=== PATIENT | female | born 1965 | race Caucasian/White ===

== ENCOUNTER 2023-10-22 10:24 | Inpatient (IN) | payer MEDICARE, OTHER ==
[~2023-10-22] VITALS: Ht 160 cm; Wt 68.0 kg
[2023-10-22] MEDS ORDERED: MAGN400O6 PO (10:44)
[2023-10-22] MEDS ORDERED: INSU100V39 SQ (10:44)
[2023-10-22] MEDS ORDERED: LACO10SO3 PO (10:44)
[2023-10-22] MEDS ORDERED: FAMO20TA8 PO (10:44)
[2023-10-22] MEDS ORDERED: LIDOCAINE 5% PATCH TOP (10:44)
[2023-10-22] MEDS ORDERED: INSU100V7 SQ (10:44)
[2023-10-22] MEDS ORDERED: MULT-1275 PO (10:44)
[2023-10-22] MEDS ORDERED: LISI20TA30 PO (10:44)
[2023-10-22] MEDS ORDERED: TRAM50TA2 PO (10:44)
[2023-10-22] MEDS ORDERED: ACET325C7 PO (10:44)
[2023-10-22] MEDS ORDERED: GABA300C PO (10:44)
[2023-10-22] MEDS ORDERED: DOCU100C36 PO (10:44)
[2023-10-22] MEDS ORDERED: LATA2.5D2 EACHEYE (10:44)
[2023-10-22] MEDS ORDERED: ATOR80TA PO (10:44)
[2023-10-22] MEDS ORDERED: SENN8.6T19 PO (10:44)
[2023-10-22] MEDS ORDERED: AMLO10TA4 PO (10:44)
[2023-10-22] MEDS ORDERED: ONDA-104 PO (10:44)
[2023-10-22] MEDS ORDERED: POLY17PO4 PO (10:44)
[2023-10-22 11:10] LABS: BASOPHILS # (AUTO) 0.1 K/UL (0.0-0.2); BASOPHILS % (AUTO) 0.6 % (0.0-2.0); EOSINOPHILS # (AUTO) 0.3 K/uL (0.0-0.7); EOSINOPHILS % (AUTO) 2.5 % (0.0-7.0); HEMATOCRIT 38.8 % (31.2-41.9); HEMOGLOBIN 13.1 g/dL (10.9-14.3); LYMPHOCYTES # (AUTO) 3.4 K/uL (0.8-4.8); LYMPHOCYTES % (AUTO) 29.1 % (20.5-51.5); MEAN CORPUSCULAR HEMOGLOBIN 27.9 uug (24.7-32.8); MEAN CORPUSCULAR HGB CONC 34 g/dL (32.3-35.6); MEAN CORPUSCULAR VOLUME 82.8 fL (75.5-95.3); MONOCYTES # (AUTO) 0.8 K/uL (0.1-1.30); MONOCYTES % (AUTO) 7.1 % (0.0-11.0); NEUTROPHILS # (AUTO) 7.1 K/uL (1.8-8.9); NEUTROPHILS % (AUTO) 60.7 % (38.5-71.5); PLATELET COUNT (AUTO) 403 K/uL (179-408); RED BLOOD CELL COUNT(AUTO) 4.69 MIL/uL (3.63-4.92); WHITE BLOOD COUNT (AUTO) 11.7 K/uL (3.8-11.8)
[2023-10-22 11:34] LABS: ALANINE AMINOTRANSFERASE 541 U/L (14-59); ALBUMIN 3.2 g/dL (3.4-5.0); ALKALINE PHOSPHATASE 260 U/L (50-136); ASPARTATE AMINOTRANSFERASE 135 U/L (15-37); BILIRUBIN,DIRECT 0.1 mg/dL (0.0-0.2); BILIRUBIN,TOTAL 0.4 mg/dL (0.2-1.0); CALCIUM 9.6 mg/dL (8.5-10.1); CARBON DIOXIDE 29 mmol/L (21-32); CHLORIDE 101 mmol/L (98-107); CREATININE 0.8 mg/dL (0.6-1.3); GLUCOSE 234 mg/dL (74-106); NT-PRO BNP 209 pg/mL (0-125); POTASSIUM 4.4 mmol/L (3.5-5.1); SODIUM SERUM 140 mmol/L (136-145); UREA NITROGEN, BLOOD 18 mg/dL (7-18)
[2023-10-22 11:37] LABS: DIFFERENTIAL COMMENT 1
[2023-10-22] MEDS ORDERED: SENNOSIDES 1 TABLET PO PRN (15:30)
[2023-10-22] MEDS ORDERED: MAGNESIUM HYDROXIDE 30 ML LIQUID UDC PO PRN (15:30)
[2023-10-22] MEDS ORDERED: MIRALAX 17 GM POWD.PACK PO PRN (15:30)
[2023-10-22] MEDS ORDERED: ONDANSETRON HCL 4 MG TABLET PO PRN (15:30)
[2023-10-22] MEDS ORDERED: GABAPENTIN 300 MG CAPSULE PO SCH (15:52)
[2023-10-22 16:27] VITALS: BP 122/86; TEMP 97.8; O2SAT 94
[2023-10-22] MEDS ORDERED: LACOSAMIDE PO SCH (17:00)
[2023-10-22] MEDS: DOCUSATE SODIUM 100 MG CAPSULE PO SCH (17:41)
[2023-10-22 20:00] VITALS: BP 140/74; TEMP 98; O2SAT 95
[2023-10-22] MEDS ORDERED: Medication Not On Formulary EA (Atorvastatin Calcium (Lipitor) 80 MG) PO SCH (21:00)
[2023-10-22] MEDS: FAMOTIDINE 20 MG TABLET PO SCH (21:06)
[2023-10-22] MEDS: GABAPENTIN 300 MG CAPSULE PO SCH (21:06)
[2023-10-22] MEDS: ATORVASTATIN 40 MG TABLET PO SCH (21:06)
[2023-10-22] MEDS: LACOSAMIDE 100 MG/10 ML UDC PO SCH (21:06)
[2023-10-22] MEDS: LATANOPROST OPHT DROP 2.5 ML BOTTLE EACHEYE SCH (21:10)
[2023-10-23] VITALS: BP 145/74; TEMP 98.2; O2SAT 96
[2023-10-23] MEDS: BENZONATATE 100 MG CAPSULE PO SCH (01:44)
[2023-10-23 04:00] VITALS: BP 119/69; TEMP 98; O2SAT 96
[2023-10-23] MEDS ORDERED: DEXTROSE 50% 50 ML DISP.SYRIN IV PRN (07:30)
[2023-10-23] MEDS: BLOOD SUGAR DIAGNOSTIC 1 EACH STRIP VI SCH (07:48)
[2023-10-23 08:14] LABS: BASOPHILS % (AUTO) 0.3 % (0.0-2.0); EOSINOPHILS # (AUTO) 0.2 K/uL (0.0-0.7); HEMATOCRIT 38.3 % (31.2-41.9); HEMOGLOBIN 12.6 g/dL (10.9-14.3); LYMPHOCYTES # (AUTO) 3.9 K/uL (0.8-4.8); LYMPHOCYTES % (AUTO) 32.9 % (20.5-51.5); MEAN CORPUSCULAR HEMOGLOBIN 27.5 uug (24.7-32.8); MEAN CORPUSCULAR HGB CONC 33 g/dL (32.3-35.6); MEAN CORPUSCULAR VOLUME 83.3 fL (75.5-95.3); MONOCYTES # (AUTO) 0.9 K/uL (0.1-1.30); MONOCYTES % (AUTO) 7.3 % (0.0-11.0); NEUTROPHILS # (AUTO) 6.7 K/uL (1.8-8.9); NEUTROPHILS % (AUTO) 57.5 % (38.5-71.5); PLATELET COUNT (AUTO) 412 K/uL (179-408); RED BLOOD CELL COUNT(AUTO) 4.59 MIL/uL (3.63-4.92); RED CELL DISTRIBUTION WIDTH 14.2 % (12.3-17.7); WHITE BLOOD COUNT (AUTO) 11.7 K/uL (3.8-11.8)
[2023-10-23 08:30] LABS: ALBUMIN 2.8 g/dL (3.4-5.0); BILIRUBIN,TOTAL 0.4 mg/dL (0.2-1.0); CALCIUM 9.6 mg/dL (8.5-10.1); CREATININE 0.7 mg/dL (0.6-1.3); MAGNESIUM 1.7 mg/dL (1.8-2.4); PHOSPHOROUS 3.7 mg/dL (2.5-4.9); POTASSIUM 3.9 mmol/L (3.5-5.1); TOTAL PROTEIN, SERUM 7.1 g/dL (6.4-8.2)
[2023-10-23] MEDS: LISINOPRIL 20 MG TABLET PO SCH (08:33)
[2023-10-23] MEDS: AMLODIPINE 10 MG TABLET PO SCH (08:33)
[2023-10-23] MEDS: MULTIVITAMINS,THERAPEUTIC TABLET PO SCH (08:33)
[2023-10-23] MEDS: INSULIN REGULAR, HUMAN 300 UNIT/3 ML VIAL SQ PRN (08:35)
[2023-10-23] MEDS ORDERED: Medication Not On Formulary EA (Multivitamin 1 TAB) PO SCH (09:00)
[2023-10-23 09:05] LABS: C-REACTIVE PROTEIN 0.75 mg/dL (0.00-0.30)
[2023-10-23 09:09] LABS: DIFFERENTIAL COMMENT 1
[2023-10-23] MEDS: MAGNESIUM OXIDE 400 MG TABLET PO ONE (10:24)
[2023-10-23] MEDS: CLOPIDOGREL 75 MG TABLET PO SCH (10:24)
[2023-10-23 10:54] VITALS: BP 126/63; TEMP 99.3; O2SAT 94
[2023-10-23 15:31] VITALS: BP 104/84; TEMP 98.6; O2SAT 95
[2023-10-23 20:00] VITALS: BP 131/70; TEMP 98; O2SAT 93
[2023-10-23] MEDS: ATORVASTATIN 40 MG TABLET PO SCH (20:16)
[2023-10-23] MEDS: TRAMADOL HCL 50 MG TABLET PO PRN (21:23)
[2023-10-24] VITALS: BP 116/58; TEMP 98.1; O2SAT 96
[2023-10-24 04:00] VITALS: BP 110/63; TEMP 97.6; O2SAT 93
[2023-10-24 11:08] VITALS: BP 132/67; TEMP 99.2; O2SAT 99
[2023-10-24 15:05] VITALS: BP 129/65; TEMP 97.6; O2SAT 95
[2023-10-24] MEDS: INSULIN GLARGINE,HUM 300 UNITS/3 ML CARTRIDGE SQ SCH (20:25)
[2023-10-24 20:57] VITALS: BP 143/77; TEMP 98.5; O2SAT 93
[2023-10-24] MEDS: GUAIFENESIN/DEXTROMETHORPHAN 5 ML UDC PO PRN (23:23)
[2023-10-25 05:59] VITALS: BP 116/74; TEMP 98.5; O2SAT 95
[2023-10-25 08:00] VITALS: BP 122/62; TEMP 97.6; O2SAT 95
[2023-10-25] MEDS ORDERED: CLOP75TA33 PO (10:53)
[2023-10-25] MEDS ORDERED: ATOR40TA PO (10:53)
[2023-10-25] MEDS ORDERED: GUAI5SYR PO (10:53)
[2023-10-25] MEDS ORDERED: Insulin Glargine,Hum SQ (10:53)
[2023-10-25 12:00] VITALS: BP 126/64; TEMP 97.6; O2SAT 97
[2023-10-25] MEDS ORDERED: INSULIN GLARGINE,HUM 300 UNITS/3 ML CARTRIDGE SQ SCH (21:00)
== END 2023-10-25 15:00 | DRG 556 ==
LOC: ER 10:24 → TELE3 15:45 → MEDSURG3 10-24 08:38
PROVIDERS: ADMIT Internal Medicine; ATTEND Internal Medicine
PROC: 05HB33Z Insertion of Infusion Device into Right Basilic Vein, Percutaneous Approach (ICD-10-PCS; principal; 2023-10-22)
DX: M79.7 Fibromyalgia (principal); D68.59 Other primary thrombophilia; I69.354 Hemiplegia and hemiparesis following cerebral infarction affecting left non-dominant side; E44.0 Moderate protein-calorie malnutrition; M32.9 Systemic lupus erythematosus, unspecified; R07.89 Other chest pain; R74.01 Elevation of levels of liver transaminase levels; T46.6X5A Adverse effect of antihyperlipidemic and antiarteriosclerotic drugs, initial encounter; Y92.129 Unspecified place in nursing home as the place of occurrence of the external cause; G40.909 Epilepsy, unspecified, not intractable, without status epilepticus; E11.65 Type 2 diabetes mellitus with hyperglycemia; Z79.4 Long term (current) use of insulin; Z79.899 Other long term (current) drug therapy; Z88.6 Allergy status to analgesic agent; I25.10 Atherosclerotic heart disease of native coronary artery without angina pectoris; Z98.61 Coronary angioplasty status; H40.9 Unspecified glaucoma; Z74.09 Other reduced mobility; R26.81 Unsteadiness on feet; K21.9 Gastro-esophageal reflux disease without esophagitis; E78.5 Hyperlipidemia, unspecified; E03.9 Hypothyroidism, unspecified; G89.29 Other chronic pain; I10 Essential (primary) hypertension; J45.909 Unspecified asthma, uncomplicated; Z87.440 Personal history of urinary (tract) infections; R60.0 Localized edema; E88.09 Other disorders of plasma-protein metabolism, not elsewhere classified
CPT/HCPCS: 36415; 71045; 83550; 83690; 83735; 84100; 84443; 84484; 85025; 85730; 86140; 93005; 93307; A4606; A4663; G0378; J1815

== ENCOUNTER 2024-02-26 17:18 | Inpatient (IN) | payer MEDICARE, OTHER ==
[~2024-02-26] VITALS: Ht 160 cm; Wt 68.0 kg
[~2024-02-26 17:18] MED LIST: AMLO10TA4 PO; ATOR40TA PO; CLOP75TA33 PO; DOCU100C36 PO; FAMO20TA8 PO; GABA300C PO; GUAI5SYR PO; INSU100V39 SQ; Insulin Glargine,Hum SQ; LACO10SO3 PO; LATA2.5D2 EACHEYE; LIDOCAINE 5% PATCH TOP; LISI20TA30 PO; MAGN400O6 PO; MULT-1275 PO; ONDA-104 PO; POLY17PO4 PO; SENN8.6T19 PO; TRAM50TA2 PO
[2024-02-26] MEDS ORDERED: INSULIN GLARGINE SUBCUT (18:06)
[2024-02-26] MEDS ORDERED: LIDOCAINE PATCH TOP (18:06)
[2024-02-26] MEDS ORDERED: CHOL10005 PO (18:06)
[2024-02-26 19:05] LABS: BASOPHILS # (AUTO) 0.1 K/UL (0.0-0.2); BASOPHILS % (AUTO) 0.9 % (0.0-2.0); EOSINOPHILS # (AUTO) 0.4 K/uL (0.0-0.7); EOSINOPHILS % (AUTO) 2.8 % (0.0-7.0); HEMATOCRIT 40.4 % (31.2-41.9); HEMOGLOBIN 13.2 g/dL (10.9-14.3); LYMPHOCYTES # (AUTO) 5.7 K/uL (0.8-4.8); LYMPHOCYTES % (AUTO) 37.1 % (20.5-51.5); MEAN CORPUSCULAR HEMOGLOBIN 27.2 uug (24.7-32.8); MEAN CORPUSCULAR HGB CONC 33 g/dL (32.3-35.6); MEAN CORPUSCULAR VOLUME 83.2 fL (75.5-95.3); MONOCYTES % (AUTO) 6.5 % (0.0-11.0); NEUTROPHILS # (AUTO) 8.1 K/uL (1.8-8.9); NEUTROPHILS % (AUTO) 52.7 % (38.5-71.5); PLATELET COUNT (AUTO) 397 K/uL (179-408); RED BLOOD CELL COUNT(AUTO) 4.86 MIL/uL (3.63-4.92); RED CELL DISTRIBUTION WIDTH 14.1 % (12.3-17.7); WHITE BLOOD COUNT (AUTO) 15.4 K/uL (3.8-11.8)
[2024-02-26 19:07] LABS: DIFFERENTIAL COMMENT 1
[2024-02-26 19:14] LABS: CALCIUM 9.8 mg/dL (8.5-10.1); CARBON DIOXIDE 26 mmol/L (21-32); CHLORIDE 103 mmol/L (98-107); CREATININE 0.8 mg/dL (0.6-1.3); GLUCOSE 161 mg/dL (74-106); POTASSIUM 4.1 mmol/L (3.5-5.1); SODIUM SERUM 140 mmol/L (136-145); UREA NITROGEN, BLOOD 15 mg/dL (7-18)
[2024-02-26] MEDS ORDERED: ONDANSETRON 4 MG/2 ML VIAL ONE (19:22)
[2024-02-26] MEDS ORDERED: HYDROMORPHONE 1 MG/1 ML DISP.SYRIN ONE (19:22)
[2024-02-26 19:23] LABS: ALANINE AMINOTRANSFERASE 63 U/L (14-59); ALKALINE PHOSPHATASE 115 U/L (50-136); ASPARTATE AMINOTRANSFERASE 21 U/L (15-37); BILIRUBIN,DIRECT 0.1 mg/dL (0.0-0.2); BILIRUBIN,TOTAL 0.3 mg/dL (0.2-1.0); LIPASE 27 U/L (16-77); TOTAL PROTEIN, SERUM 7.8 g/dL (6.4-8.2)
[2024-02-26] MEDS: HYDROMORPHONE 1 MG/1 ML DISP.SYRIN IV ONE (19:28)
[2024-02-26] MEDS: ONDANSETRON 4 MG/2 ML VIAL IV ONE (19:28)
[2024-02-26] MEDS ORDERED: SENNOSIDES 1 TABLET PO PRN (20:45)
[2024-02-26] MEDS ORDERED: TRAMADOL HCL 50 MG TABLET PO SCH (20:45)
[2024-02-26] MEDS ORDERED: DEXTROSE 50% 50 ML DISP.SYRIN IV PRN (21:00)
[2024-02-26 22:00] LABS: *BILIRUBIN,URIN NEGATIVE (NEGATIVE); *BLOOD, URINE TRACE (NEGATIVE); *CLARITY,URINE SLIGHTLY CLOUDY (CLEAR); *COLOR,URINE YELLOW (YELLOW); *KETONES,URINE NEGATIVE (NEGATIVE); *PROTEIN,URINE NEGATIVE (NEGATIVE); *UROBILINOGEN,URINE 0.2 E.U./dl (NORMAL); LEUKOCYTE ESTERASE ,URINE 3+ (NEGATIVE); NITRITE, URINE NEGATIVE (NEGATIVE); PH,URINE 5.5 (5.0-8.0); UGLUCOSE NEGATIVE (NEGATIVE)
[2024-02-26 22:06] LABS: RBC,URINE 0-3 /HPF (0-3)
[2024-02-26 22:07] LABS: BACTERIA,URINE FEW /HPF (NONE SEEN); SQUAMOUS EPITHELIAL CELL,UR FEW /HPF (NONE SEEN)
[2024-02-26 22:09] LABS: WBC,URINE 50-80 /HPF (0-3); YEAST,URINE MODERATE /HPF (NONE SEEN)
[2024-02-26] MEDS ORDERED: CEFTRIAXONE /D5W 50ML IVPB **ER PYXIS IV ONE (22:53)
[2024-02-26] MEDS ORDERED: ACETAMINOPHEN 325 MG TABLET PO PRN (23:00)
[2024-02-26] MEDS: GABAPENTIN 300 MG CAPSULE PO SCH (23:44)
[2024-02-26] MEDS: LACOSAMIDE 100 MG/10 ML UDC PO SCH (23:44)
[2024-02-26] MEDS: FAMOTIDINE 20 MG TABLET PO SCH (23:44)
[2024-02-26] MEDS: DOCUSATE SODIUM 100 MG CAPSULE PO SCH (23:45)
[2024-02-26] MEDS: CEFTRIAXONE 1 G in IV DEXTROSE 5% 50 ML IV SCH (23:46)
[2024-02-26] MEDS: IV NS 1000 ML 1,000 ML IV PRN (23:47)
[2024-02-27] MEDS: BLOOD SUGAR DIAGNOSTIC 1 EACH STRIP VI SCH (00:18)
[2024-02-27] MEDS: INSULIN REGULAR, HUMAN 1000 UNIT/10 ML VIAL SQ PRN (00:21)
[2024-02-27] MEDS: INSULIN GLARGINE,HUM 300 UNITS/3 ML CARTRIDGE SQ SCH (00:22)
[2024-02-27] MEDS: ENOXAPARIN SODIUM 40 MG/0.4 ML DISP.SYRIN SQ SCH (00:23)
[2024-02-27] MEDS: LATANOPROST OPHT DROP 2.5 ML BOTTLE EACHEYE SCH ×2 (00:34→18:00)
[2024-02-27] MEDS ORDERED: FLUCONAZOLE 200 MG/100 ML PIGGYBACK ONE (02:38)
[2024-02-27] MEDS: FLUCONAZOLE 200 MG/NS 100ML IV 100 MG in PREMIXED 1 EACH IV SCH (02:48)
[2024-02-27 05:54] VITALS: BP 134/62; TEMP 97.7; O2SAT 99
[2024-02-27 07:41] LABS: BASOPHILS % (AUTO) 0.3 % (0.0-2.0); EOSINOPHILS # (AUTO) 0.4 K/uL (0.0-0.7); EOSINOPHILS % (AUTO) 2.9 % (0.0-7.0); HEMATOCRIT 36.5 % (31.2-41.9); LYMPHOCYTES # (AUTO) 5.2 K/uL (0.8-4.8); LYMPHOCYTES % (AUTO) 41.1 % (20.5-51.5); MEAN CORPUSCULAR HEMOGLOBIN 27.8 uug (24.7-32.8); MEAN CORPUSCULAR HGB CONC 33 g/dL (32.3-35.6); MEAN CORPUSCULAR VOLUME 84.4 fL (75.5-95.3); MONOCYTES # (AUTO) 0.9 K/uL (0.1-1.30); MONOCYTES % (AUTO) 7.3 % (0.0-11.0); NEUTROPHILS # (AUTO) 6.1 K/uL (1.8-8.9); NEUTROPHILS % (AUTO) 48.4 % (38.5-71.5); PLATELET COUNT (AUTO) 337 K/uL (179-408); RED BLOOD CELL COUNT(AUTO) 4.33 MIL/uL (3.63-4.92); RED CELL DISTRIBUTION WIDTH 14.4 % (12.3-17.7); WHITE BLOOD COUNT (AUTO) 12.6 K/uL (3.8-11.8)
[2024-02-27 07:52] LABS: DIFFERENTIAL COMMENT 1
[2024-02-27 07:55] LABS: CALCIUM 9.2 mg/dL (8.5-10.1); CREATININE 0.7 mg/dL (0.6-1.3); MAGNESIUM 1.6 mg/dL (1.8-2.4); PHOSPHOROUS 4.3 mg/dL (2.5-4.9); POTASSIUM 4.1 mmol/L (3.5-5.1)
[2024-02-27] MEDS: LISINOPRIL 20 MG TABLET PO SCH (10:15)
[2024-02-27] MEDS: AMLODIPINE 10 MG TABLET PO SCH (10:16)
[2024-02-27] MEDS: MULTIVIT, IRON, MIN NO. 8, FA TABLET PO SCH (10:17)
[2024-02-27] MEDS: LACOSAMIDE 50 MG TABLET PO SCH (10:39)
[2024-02-27] MEDS: LIDOCAINE 5% PATCH TD SCH (10:41)
[2024-02-27] MEDS: CHOLECALCIFEROL 400 UNITS TABLET PO SCH (10:41)
[2024-02-27] MEDS: CLOPIDOGREL 75 MG TABLET PO SCH (11:03)
[2024-02-27 11:55] VITALS: BP 121/52; TEMP 97; O2SAT 98
[2024-02-27] MEDS: MAGNESIUM SULFATE/D5W 100 ML IV SCH (12:43)
[2024-02-27 16:00] VITALS: BP 128/56; TEMP 98.6; O2SAT 97
[2024-02-27 20:58] VITALS: BP 117/75; TEMP 98; O2SAT 96
[2024-02-28] MEDS: FLUCONAZOLE 200 MG/NS 100ML IV 200 MG in PREMIXED 1 EACH IV SCH (00:04)
[2024-02-28] MEDS: TRAMADOL HCL 50 MG TABLET PO PRN (02:59)
[2024-02-28] MEDS: BENZONATATE 100 MG CAPSULE PO PRN (04:05)
[2024-02-28 05:40] VITALS: BP 125/73; TEMP 98.1; O2SAT 95
[2024-02-28 07:34] LABS: BASOPHILS % (AUTO) 0.4 % (0.0-2.0); EOSINOPHILS # (AUTO) 0.4 K/uL (0.0-0.7); EOSINOPHILS % (AUTO) 2.7 % (0.0-7.0); HEMOGLOBIN 12.4 g/dL (10.9-14.3); LYMPHOCYTES # (AUTO) 4.4 K/uL (0.8-4.8); LYMPHOCYTES % (AUTO) 33.5 % (20.5-51.5); MEAN CORPUSCULAR HEMOGLOBIN 27.4 uug (24.7-32.8); MEAN CORPUSCULAR HGB CONC 33 g/dL (32.3-35.6); MEAN CORPUSCULAR VOLUME 84.2 fL (75.5-95.3); MONOCYTES # (AUTO) 0.8 K/uL (0.1-1.30); MONOCYTES % (AUTO) 5.9 % (0.0-11.0); NEUTROPHILS # (AUTO) 7.6 K/uL (1.8-8.9); NEUTROPHILS % (AUTO) 57.5 % (38.5-71.5); PLATELET COUNT (AUTO) 359 K/uL (179-408); RED BLOOD CELL COUNT(AUTO) 4.52 MIL/uL (3.63-4.92); RED CELL DISTRIBUTION WIDTH 14.3 % (12.3-17.7); WHITE BLOOD COUNT (AUTO) 13.2 K/uL (3.8-11.8)
[2024-02-28 07:35] LABS: CALCIUM 9.4 mg/dL (8.5-10.1); CREATININE 0.6 mg/dL (0.6-1.3); MAGNESIUM 1.7 mg/dL (1.8-2.4); PHOSPHOROUS 3.9 mg/dL (2.5-4.9); POTASSIUM 4.1 mmol/L (3.5-5.1)
[2024-02-28 07:36] LABS: DIFFERENTIAL COMMENT 1
[2024-02-28] MEDS: MAGNESIUM OXIDE 400 MG TABLET PO ONE (10:21)
[2024-02-28] MEDS: ONDANSETRON 4 MG/2 ML VIAL IV PRN (10:24)
[2024-02-28 11:03] VITALS: BP 121/58; TEMP 98.4; O2SAT 96
[2024-02-28 16:02] VITALS: BP_SYST 110; BP_SYST 113; BP_DIAS 58; BP_DIAS 69; TEMP 98.2; O2SAT 95; O2SAT 96
[2024-02-28 19:57] VITALS: BP 102/60; TEMP 97.9; O2SAT 97
[2024-02-29 05:40] VITALS: BP 121/69; TEMP 98; O2SAT 99
[2024-02-29 07:51] LABS: BASOPHILS # (AUTO) 0.1 K/UL (0.0-0.2); BASOPHILS % (AUTO) 0.5 % (0.0-2.0); EOSINOPHILS # (AUTO) 0.3 K/uL (0.0-0.7); EOSINOPHILS % (AUTO) 2.9 % (0.0-7.0); HEMATOCRIT 33.3 % (31.2-41.9); HEMOGLOBIN 10.8 g/dL (10.9-14.3); LYMPHOCYTES # (AUTO) 3.7 K/uL (0.8-4.8); MEAN CORPUSCULAR HEMOGLOBIN 27.4 uug (24.7-32.8); MEAN CORPUSCULAR HGB CONC 32 g/dL (32.3-35.6); MEAN CORPUSCULAR VOLUME 84.4 fL (75.5-95.3); MONOCYTES # (AUTO) 0.8 K/uL (0.1-1.30); MONOCYTES % (AUTO) 6.8 % (0.0-11.0); NEUTROPHILS # (AUTO) 6.3 K/uL (1.8-8.9); NEUTROPHILS % (AUTO) 56.8 % (38.5-71.5); PLATELET COUNT (AUTO) 339 K/uL (179-408); RED BLOOD CELL COUNT(AUTO) 3.95 MIL/uL (3.63-4.92); RED CELL DISTRIBUTION WIDTH 14.4 % (12.3-17.7); WHITE BLOOD COUNT (AUTO) 11.1 K/uL (3.8-11.8)
[2024-02-29 08:01] LABS: DIFFERENTIAL COMMENT 1
[2024-02-29 08:05] LABS: CALCIUM 8.1 mg/dL (8.5-10.1); CREATININE 0.5 mg/dL (0.6-1.3); MAGNESIUM 1.5 mg/dL (1.8-2.4); PHOSPHOROUS 3.2 mg/dL (2.5-4.9); POTASSIUM 3.7 mmol/L (3.5-5.1)
[2024-02-29] MEDS: FLUCONAZOLE 100 MG TABLET PO SCH (08:17)
[2024-02-29] MEDS: MAGNESIUM OXIDE 400 MG TABLET PO ONE (09:47)
[2024-02-29 11:36] VITALS: BP 127/76; TEMP 98.1; O2SAT 98
[2024-02-29 16:05] VITALS: BP 131/68; TEMP 98.3; O2SAT 97
[2024-02-29] MEDS: MAGNESIUM HYDROXIDE 30 ML LIQUID UDC PO PRN (16:06)
[2024-02-29 21:58] VITALS: BP 105/46; TEMP 98; O2SAT 94
[2024-03-01] MEDS: BENZOCAINE/MENTH/CETYLPYRD LOZENGE MM PRN (02:30)
[2024-03-01 05:52] VITALS: BP 136/65; TEMP 97.5; O2SAT 99
[2024-03-01 07:07] LABS: BASOPHILS # (AUTO) 0.1 K/UL (0.0-0.2); BASOPHILS % (AUTO) 0.5 % (0.0-2.0); EOSINOPHILS # (AUTO) 0.5 K/uL (0.0-0.7); EOSINOPHILS % (AUTO) 3.8 % (0.0-7.0); HEMATOCRIT 37.9 % (31.2-41.9); HEMOGLOBIN 12.4 g/dL (10.9-14.3); LYMPHOCYTES # (AUTO) 4.7 K/uL (0.8-4.8); LYMPHOCYTES % (AUTO) 38.7 % (20.5-51.5); MEAN CORPUSCULAR HEMOGLOBIN 27.6 uug (24.7-32.8); MEAN CORPUSCULAR HGB CONC 33 g/dL (32.3-35.6); MEAN CORPUSCULAR VOLUME 84.4 fL (75.5-95.3); MONOCYTES # (AUTO) 0.8 K/uL (0.1-1.30); MONOCYTES % (AUTO) 6.4 % (0.0-11.0); NEUTROPHILS # (AUTO) 6.1 K/uL (1.8-8.9); NEUTROPHILS % (AUTO) 50.6 % (38.5-71.5); PLATELET COUNT (AUTO) 403 K/uL (179-408); RED CELL DISTRIBUTION WIDTH 14.7 % (12.3-17.7)
[2024-03-01 07:22] LABS: DIFFERENTIAL COMMENT 1
[2024-03-01 07:25] LABS: CALCIUM 9.4 mg/dL (8.5-10.1); CREATININE 0.6 mg/dL (0.6-1.3); PHOSPHOROUS 3.7 mg/dL (2.5-4.9); POTASSIUM 4.1 mmol/L (3.5-5.1)
[2024-03-01] MEDS ORDERED: FLUC200T PO (10:33)
[2024-03-01] MEDS: LACTULOSE 20 G/30 ML LIQUID UDC PO ONE (11:33)
[2024-03-01 11:55] VITALS: BP 146/73; TEMP 98.1; O2SAT 98
[2024-03-01] MEDS: BISACODYL 10 MG SUPP.RECT RC ONE (15:33)
[2024-03-01] MEDS ORDERED: BISACODYL 10 MG SUPP.RECT RC ONE (15:45)
[2024-03-01 16:07] VITALS: BP 138/79; TEMP 97.7; O2SAT 97
== END 2024-03-01 18:30 | DRG 758 ==
LOC: ER 17:19 → MEDSURG3 22:13
PROVIDERS: ADMIT Nurse Practitioner Acute Care; ATTEND Nurse Practitioner Acute Care
PROC: 05HB33Z Insertion of Infusion Device into Right Basilic Vein, Percutaneous Approach (ICD-10-PCS; principal; 2024-02-28)
DX: B37.49 Other urogenital candidiasis (principal); D68.59 Other primary thrombophilia; E44.1 Mild protein-calorie malnutrition; I69.354 Hemiplegia and hemiparesis following cerebral infarction affecting left non-dominant side; E88.09 Other disorders of plasma-protein metabolism, not elsewhere classified; G40.909 Epilepsy, unspecified, not intractable, without status epilepticus; E03.9 Hypothyroidism, unspecified; M32.9 Systemic lupus erythematosus, unspecified; Z90.49 Acquired absence of other specified parts of digestive tract; M79.7 Fibromyalgia; Z88.6 Allergy status to analgesic agent; Z88.8 Allergy status to other drugs, medicaments and biological substances; Z91.018 Allergy to other foods; J45.909 Unspecified asthma, uncomplicated; Z79.4 Long term (current) use of insulin; Z79.899 Other long term (current) drug therapy; E11.9 Type 2 diabetes mellitus without complications; I25.10 Atherosclerotic heart disease of native coronary artery without angina pectoris; Z98.61 Coronary angioplasty status; E78.5 Hyperlipidemia, unspecified; H40.9 Unspecified glaucoma; Z74.09 Other reduced mobility; G89.29 Other chronic pain; K21.9 Gastro-esophageal reflux disease without esophagitis; I10 Essential (primary) hypertension; N12 Tubulo-interstitial nephritis, not specified as acute or chronic
CPT/HCPCS: 36415; 71045; 83605; 83690; 83735; 84100; 84484; 85025; 85730; 87040; 93005; A4606; A4663; C1758; G0378; J0696; J1170; J1450; J1650; J1815; J2405; J3475; J7040

== ENCOUNTER 2024-03-24 19:33 | Inpatient (IN) | payer MEDICARE, OTHER ==
[~2024-03-24] VITALS: Ht 160 cm; Wt 76.7 kg
[~2024-03-24 19:33] MED LIST changes: -ATOR40TA PO; +CHOL10005 PO; +FLUC200T PO; +INSULIN GLARGINE SUBCUT; -Insulin Glargine,Hum SQ; -LIDOCAINE 5% PATCH TOP; +LIDOCAINE PATCH TOP
[2024-03-24] MEDS ORDERED: FAMOTIDINE. 20 MG/2 ML VIAL IV ONE (20:54)
[2024-03-24] MEDS ORDERED: KETOROLAC TROMETHAMINE 15 MG INJ ONE (20:54)
[2024-03-24] MEDS ORDERED: ONDANSETRON 4 MG/2 ML VIAL ONE (20:54)
[2024-03-24] MEDS: KETOROLAC TROMETHAMINE 15 MG INJ IVP ONE (21:04)
[2024-03-24] MEDS: ONDANSETRON 4 MG/2 ML VIAL IV ONE (21:04)
[2024-03-24] MEDS: FAMOTIDINE. 20 MG/2 ML VIAL IV ONE (21:04)
[2024-03-24] MEDS: IV NORMAL SALINE 1000 ML BAG IV ONE (21:09)
[2024-03-24 21:11] LABS: BASOPHILS # (AUTO) 0.1 K/UL (0.0-0.2); BASOPHILS % (AUTO) 0.5 % (0.0-2.0); EOSINOPHILS # (AUTO) 0.6 K/uL (0.0-0.7); EOSINOPHILS % (AUTO) 3.9 % (0.0-7.0); HEMATOCRIT 38.4 % (31.2-41.9); HEMOGLOBIN 12.5 g/dL (10.9-14.3); MEAN CORPUSCULAR HEMOGLOBIN 27.1 uug (24.7-32.8); MEAN CORPUSCULAR HGB CONC 33 g/dL (32.3-35.6); MEAN CORPUSCULAR VOLUME 83.5 fL (75.5-95.3); MONOCYTES % (AUTO) 6.2 % (0.0-11.0); NEUTROPHILS # (AUTO) 9.4 K/uL (1.8-8.9); NEUTROPHILS % (AUTO) 58.4 % (38.5-71.5); PLATELET COUNT (AUTO) 390 K/uL (179-408); RED CELL DISTRIBUTION WIDTH 14.6 % (12.3-17.7); WHITE BLOOD COUNT (AUTO) 16.1 K/uL (3.8-11.8)
[2024-03-24 21:13] LABS: DIFFERENTIAL COMMENT 1
[2024-03-24 21:51] LABS: ALANINE AMINOTRANSFERASE 242 U/L (14-59); ALBUMIN 3.1 g/dL (3.4-5.0); ALKALINE PHOSPHATASE 140 U/L (50-136); ASPARTATE AMINOTRANSFERASE 210 U/L (15-37); BILIRUBIN,DIRECT < 0.1 mg/dL (0.0-0.2); BILIRUBIN,TOTAL 0.4 mg/dL (0.2-1.0); CALCIUM 9.6 mg/dL (8.5-10.1); CARBON DIOXIDE 27 mmol/L (21-32); CHLORIDE 102 mmol/L (98-107); CREATININE 0.7 mg/dL (0.6-1.3); GLUCOSE 123 mg/dL (74-106); POTASSIUM 4.7 mmol/L (3.5-5.1); SODIUM SERUM 138 mmol/L (136-145); TOTAL PROTEIN, SERUM 7.5 g/dL (6.4-8.2); UREA NITROGEN, BLOOD 17 mg/dL (7-18)
[2024-03-24 22:03] LABS: LIPASE 27 U/L (16-77)
[2024-03-24 22:49] LABS: *BILIRUBIN,URIN NEGATIVE (NEGATIVE); *BLOOD, URINE NEGATIVE (NEGATIVE); *CLARITY,URINE CLEAR (CLEAR); *COLOR,URINE LIGHT YELLOW (YELLOW); *KETONES,URINE NEGATIVE (NEGATIVE); *PROTEIN,URINE NEGATIVE (NEGATIVE); *UROBILINOGEN,URINE 0.2 E.U./dl (NORMAL); LEUKOCYTE ESTERASE ,URINE TRACE (NEGATIVE); NITRITE, URINE NEGATIVE (NEGATIVE); PH,URINE 5.5 (5.0-8.0); UGLUCOSE NEGATIVE (NEGATIVE)
[2024-03-24 22:56] LABS: BACTERIA,URINE RARE /HPF (NONE SEEN); RBC,URINE 0-3 /HPF (0-3); SQUAMOUS EPITHELIAL CELL,UR MODERATE /HPF (NONE SEEN); WBC,URINE 20-50 /HPF (0-3); YEAST,URINE BUDDING YEAST /HPF (NONE SEEN)
[2024-03-24] MEDS ORDERED: CEFTRIAXONE /D5W 50ML IVPB **ER PYXIS IV ONE (23:17)
[2024-03-24] MEDS: CEFTRIAXONE 1 G in IV DEXTROSE 5% 50 ML IV ONE (23:25)
[2024-03-25] MEDS ORDERED: MORPHINE SULFATE 2 MG/1 ML DISP.SYRIN IV PRN (02:15)
[2024-03-25 04:00] VITALS: BP 108/55; TEMP 98; O2SAT 96
[2024-03-25] MEDS ORDERED: DEXTROSE 50% 50 ML DISP.SYRIN IV PRN (04:00)
[2024-03-25] MEDS: PANTOPRAZOLE SODIUM 40 MG TABLET.DR PO SCH (06:15)
[2024-03-25 06:25] LABS: BASOPHILS # (AUTO) 0.1 K/UL (0.0-0.2); BASOPHILS % (AUTO) 0.6 % (0.0-2.0); EOSINOPHILS # (AUTO) 0.6 K/uL (0.0-0.7); HEMATOCRIT 36.1 % (31.2-41.9); HEMOGLOBIN 11.6 g/dL (10.9-14.3); LYMPHOCYTES # (AUTO) 4.6 K/uL (0.8-4.8); LYMPHOCYTES % (AUTO) 40.6 % (20.5-51.5); MEAN CORPUSCULAR HEMOGLOBIN 27.4 uug (24.7-32.8); MEAN CORPUSCULAR HGB CONC 32 g/dL (32.3-35.6); MEAN CORPUSCULAR VOLUME 85.3 fL (75.5-95.3); MONOCYTES # (AUTO) 0.7 K/uL (0.1-1.30); MONOCYTES % (AUTO) 6.5 % (0.0-11.0); NEUTROPHILS # (AUTO) 5.3 K/uL (1.8-8.9); NEUTROPHILS % (AUTO) 47.3 % (38.5-71.5); PLATELET COUNT (AUTO) 340 K/uL (179-408); RED BLOOD CELL COUNT(AUTO) 4.24 MIL/uL (3.63-4.92); RED CELL DISTRIBUTION WIDTH 14.6 % (12.3-17.7); WHITE BLOOD COUNT (AUTO) 11.2 K/uL (3.8-11.8)
[2024-03-25] MEDS: BLOOD SUGAR DIAGNOSTIC 1 EACH STRIP VI SCH (06:35)
[2024-03-25 06:44] LABS: ALBUMIN 2.3 g/dL (3.4-5.0); BILIRUBIN,TOTAL 0.2 mg/dL (0.2-1.0); CALCIUM 8.4 mg/dL (8.5-10.1); CREATININE 0.8 mg/dL (0.6-1.3); MAGNESIUM 1.8 mg/dL (1.8-2.4); POTASSIUM 4.1 mmol/L (3.5-5.1)
[2024-03-25] MEDS: INSULIN REGULAR, HUMAN 1000 UNIT/10 ML VIAL SQ PRN (10:29)
[2024-03-25] MEDS ORDERED: FLUCONAZOLE 400MG /NS 200ML IV 400 MG in PREMIXED 1 EACH IV SCH (10:30)
[2024-03-25] MEDS ORDERED: TRAMADOL HCL 50 MG TABLET PO PRN (10:45)
[2024-03-25 11:46] VITALS: BP 93/47; TEMP 97.7; O2SAT 94
[2024-03-25] MEDS ORDERED: LIDO700A30 TP (12:13)
[2024-03-25] MEDS ORDERED: INSU3INS6 SQ (12:13)
[2024-03-25] MEDS: FLUCONAZOLE 200 MG/NS 100ML IV 200 MG in PREMIXED 1 EACH IV SCH (12:18)
[2024-03-25] MEDS: ENOXAPARIN SODIUM 40 MG/0.4 ML DISP.SYRIN SQ SCH (13:06)
[2024-03-25] MEDS: CLOPIDOGREL 75 MG TABLET PO SCH (13:07)
[2024-03-25] MEDS: GABAPENTIN 300 MG CAPSULE PO SCH (13:07)
[2024-03-25] MEDS: LIDOCAINE 5% PATCH TD SCH (14:59)
[2024-03-25] MEDS: AMLODIPINE 10 MG TABLET PO SCH (15:00)
[2024-03-25] MEDS: LACOSAMIDE 100 MG/10 ML UDC PO SCH (15:08)
[2024-03-25] MEDS: LISINOPRIL 20 MG TABLET PO SCH (15:09)
[2024-03-25] MEDS: MULTIVITAMINS,THERAPEUTIC TABLET PO SCH (15:16)
[2024-03-25 16:00] VITALS: BP 109/64; TEMP 98.2; O2SAT 96
[2024-03-25] MEDS ORDERED: FAMOTIDINE 20 MG TABLET PO SCH (17:00)
[2024-03-25] MEDS: DOCUSATE SODIUM 100 MG CAPSULE PO SCH (17:15)
[2024-03-25 20:19] VITALS: BP 101/50; TEMP 98.5; O2SAT 96
[2024-03-25] MEDS: CEFTRIAXONE 1 G in IV DEXTROSE 5% 50 ML IV SCH (20:23)
[2024-03-25] MEDS: INSULIN GLARGINE,HUM 300 UNITS/3 ML CARTRIDGE SQ SCH (20:26)
[2024-03-25] MEDS: LATANOPROST OPHT DROP 2.5 ML BOTTLE EACHEYE SCH (20:28)
[2024-03-25] MEDS: ONDANSETRON 4 MG/2 ML VIAL IV PRN (20:34)
[2024-03-25] MEDS ORDERED: INSULIN GLARGINE,HUM 300 UNITS/3 ML CARTRIDGE SQ SCH (21:00)
[2024-03-26] MEDS: GUAIFENESIN/DEXTROMETHORPHAN 5 ML UDC PO PRN (05:14)
[2024-03-26 06:05] VITALS: BP 141/66; TEMP 97.6; O2SAT 98
[2024-03-26] MEDS: CHOLECALCIFEROL 1,000 UNIT TABLET PO SCH (08:19)
[2024-03-26 12:00] VITALS: BP 119/64; TEMP 98.1; O2SAT 98
[2024-03-26 14:28] LABS: BASOPHILS # (AUTO) 0.1 K/UL (0.0-0.2); BASOPHILS % (AUTO) 0.6 % (0.0-2.0); EOSINOPHILS # (AUTO) 0.4 K/uL (0.0-0.7); EOSINOPHILS % (AUTO) 3.9 % (0.0-7.0); HEMATOCRIT 36.5 % (31.2-41.9); HEMOGLOBIN 11.5 g/dL (10.9-14.3); LYMPHOCYTES # (AUTO) 3.6 K/uL (0.8-4.8); LYMPHOCYTES % (AUTO) 32.5 % (20.5-51.5); MEAN CORPUSCULAR HEMOGLOBIN 26.8 uug (24.7-32.8); MEAN CORPUSCULAR HGB CONC 32 g/dL (32.3-35.6); MEAN CORPUSCULAR VOLUME 84.6 fL (75.5-95.3); MONOCYTES # (AUTO) 0.6 K/uL (0.1-1.30); NEUTROPHILS # (AUTO) 6.4 K/uL (1.8-8.9); PLATELET COUNT (AUTO) 366 K/uL (179-408); RED BLOOD CELL COUNT(AUTO) 4.31 MIL/uL (3.63-4.92); RED CELL DISTRIBUTION WIDTH 14.6 % (12.3-17.7); WHITE BLOOD COUNT (AUTO) 11.1 K/uL (3.8-11.8)
[2024-03-26 14:39] LABS: DIFFERENTIAL COMMENT 1
[2024-03-26 15:14] LABS: CREATININE 0.6 mg/dL (0.6-1.3); MAGNESIUM 1.2 mg/dL (1.8-2.4); PHOSPHOROUS 3.8 mg/dL (2.5-4.9); POTASSIUM 4.2 mmol/L (3.5-5.1)
[2024-03-26 16:00] VITALS: BP 104/52; TEMP 98.2; O2SAT 94
[2024-03-26 19:40] VITALS: BP 115/60; TEMP 98.4; O2SAT 94
[2024-03-26] MEDS: MUPIROCIN 2% OINT 22 GM TUBE NS SCH (21:09)
[2024-03-27] MEDS: IV NS 1000 ML 1,000 ML IV PRN (02:22)
[2024-03-27 06:19] VITALS: BP 145/73; TEMP 97.1; O2SAT 100
[2024-03-27 06:39] LABS: BASOPHILS # (AUTO) 0.1 K/UL (0.0-0.2); BASOPHILS % (AUTO) 0.5 % (0.0-2.0); EOSINOPHILS # (AUTO) 0.5 K/uL (0.0-0.7); EOSINOPHILS % (AUTO) 3.7 % (0.0-7.0); HEMATOCRIT 39.1 % (31.2-41.9); HEMOGLOBIN 12.6 g/dL (10.9-14.3); LYMPHOCYTES # (AUTO) 4.1 K/uL (0.8-4.8); LYMPHOCYTES % (AUTO) 29.8 % (20.5-51.5); MEAN CORPUSCULAR HEMOGLOBIN 27.1 uug (24.7-32.8); MEAN CORPUSCULAR HGB CONC 32 g/dL (32.3-35.6); MONOCYTES # (AUTO) 0.9 K/uL (0.1-1.30); MONOCYTES % (AUTO) 6.7 % (0.0-11.0); NEUTROPHILS # (AUTO) 8.1 K/uL (1.8-8.9); NEUTROPHILS % (AUTO) 59.3 % (38.5-71.5); PLATELET COUNT (AUTO) 334 K/uL (179-408); RED BLOOD CELL COUNT(AUTO) 4.65 MIL/uL (3.63-4.92); RED CELL DISTRIBUTION WIDTH 14.6 % (12.3-17.7); WHITE BLOOD COUNT (AUTO) 13.7 K/uL (3.8-11.8)
[2024-03-27 06:49] LABS: DIFFERENTIAL COMMENT 1
[2024-03-27 06:51] LABS: CALCIUM 9.3 mg/dL (8.5-10.1); CREATININE 0.7 mg/dL (0.6-1.3); MAGNESIUM 1.8 mg/dL (1.8-2.4); PHOSPHOROUS 3.8 mg/dL (2.5-4.9); POTASSIUM 3.9 mmol/L (3.5-5.1)
[2024-03-27 11:42] VITALS: BP 111/61; TEMP 97.9; O2SAT 95
[2024-03-27 15:57] VITALS: BP 123/63; TEMP 97.7; O2SAT 100
[2024-03-27 20:00] VITALS: BP 121/59; TEMP 98.1; O2SAT 98
[2024-03-28 06:17] VITALS: BP 122/53; TEMP 97.8; O2SAT 98
[2024-03-28 12:00] VITALS: BP 124/67; TEMP 98.8; O2SAT 94
[2024-03-28 14:55] LABS: BASOPHILS # (AUTO) 0.1 K/UL (0.0-0.2); BASOPHILS % (AUTO) 0.7 % (0.0-2.0); DIFFERENTIAL COMMENT 1; EOSINOPHILS # (AUTO) 0.4 K/uL (0.0-0.7); EOSINOPHILS % (AUTO) 2.9 % (0.0-7.0); HEMOGLOBIN 11.8 g/dL (10.9-14.3); LYMPHOCYTES # (AUTO) 4.4 K/uL (0.8-4.8); LYMPHOCYTES % (AUTO) 34.9 % (20.5-51.5); MEAN CORPUSCULAR HEMOGLOBIN 27.4 uug (24.7-32.8); MEAN CORPUSCULAR HGB CONC 33 g/dL (32.3-35.6); MEAN CORPUSCULAR VOLUME 83.5 fL (75.5-95.3); MONOCYTES # (AUTO) 0.8 K/uL (0.1-1.30); MONOCYTES % (AUTO) 6.2 % (0.0-11.0); NEUTROPHILS % (AUTO) 55.3 % (38.5-71.5); PLATELET COUNT (AUTO) 253 K/uL (179-408); RED BLOOD CELL COUNT(AUTO) 4.31 MIL/uL (3.63-4.92); RED CELL DISTRIBUTION WIDTH 14.8 % (12.3-17.7); WHITE BLOOD COUNT (AUTO) 12.6 K/uL (3.8-11.8)
[2024-03-28 15:06] LABS: CALCIUM 8.9 mg/dL (8.5-10.1); CREATININE 0.6 mg/dL (0.6-1.3); MAGNESIUM 1.7 mg/dL (1.8-2.4); PHOSPHOROUS 3.9 mg/dL (2.5-4.9); POTASSIUM 4.2 mmol/L (3.5-5.1)
[2024-03-28] MEDS ORDERED: DOXYCYCLINE HYCLATE IV 100 MG in IV DEXTROSE 5% 100 ML IV SCH (15:15)
[2024-03-28 15:34] VITALS: BP 128/64; TEMP 98.2; O2SAT 94
[2024-03-28] MEDS: DOXYCYCLINE HYCLATE IV 100 MG in IV DEXTROSE 5% 100 ML IV SCH (16:43)
[2024-03-29] MEDS: MAGNESIUM HYDROXIDE 30 ML LIQUID UDC PO PRN (01:25)
[2024-03-29 06:37] VITALS: BP 113/59; TEMP 98.2; O2SAT 95
[2024-03-29 11:32] VITALS: BP 110/45; TEMP 98.4; O2SAT 94
[2024-03-29] MEDS: LACTULOSE 20 G/30 ML LIQUID UDC PO ONE (11:33)
[2024-03-29] MEDS: SORBITOL 70% SOLUTION 30 ML UDC PO ONE (11:35)
[2024-03-29 16:00] VITALS: BP 128/81; TEMP 98.5; O2SAT 94
[2024-03-29 20:01] VITALS: BP 106/56; TEMP 98.9; O2SAT 93
[2024-03-29] MEDS: MIRALAX 17 GM POWD.PACK PO SCH (20:31)
[2024-03-29] MEDS: MINERAL OIL FLEET ENEMA 133 ML BOTTLE RC ONE (20:32)
[2024-03-29] MEDS ORDERED: DOXYCYCLINE HYCLATE 100 MG TABLET PO SCH (21:00)
[2024-03-30 04:49] VITALS: BP 140/74; TEMP 97.8; O2SAT 96
[2024-03-30 06:56] LABS: BASOPHILS % (AUTO) 0.3 % (0.0-2.0); EOSINOPHILS # (AUTO) 0.5 K/uL (0.0-0.7); EOSINOPHILS % (AUTO) 3.9 % (0.0-7.0); HEMATOCRIT 43.1 % (31.2-41.9); HEMOGLOBIN 13.9 g/dL (10.9-14.3); LYMPHOCYTES # (AUTO) 5.2 K/uL (0.8-4.8); MEAN CORPUSCULAR HEMOGLOBIN 27.5 uug (24.7-32.8); MEAN CORPUSCULAR HGB CONC 32 g/dL (32.3-35.6); MEAN CORPUSCULAR VOLUME 85.3 fL (75.5-95.3); MONOCYTES # (AUTO) 0.8 K/uL (0.1-1.30); MONOCYTES % (AUTO) 5.4 % (0.0-11.0); NEUTROPHILS # (AUTO) 7.5 K/uL (1.8-8.9); NEUTROPHILS % (AUTO) 53.4 % (38.5-71.5); PLATELET COUNT (AUTO) 349 K/uL (179-408); RED BLOOD CELL COUNT(AUTO) 5.05 MIL/uL (3.63-4.92); RED CELL DISTRIBUTION WIDTH 14.6 % (12.3-17.7)
[2024-03-30 07:09] LABS: DIFFERENTIAL COMMENT 1
[2024-03-30 07:22] LABS: CALCIUM 9.7 mg/dL (8.5-10.1); CREATININE 0.5 mg/dL (0.6-1.3); POTASSIUM 4.4 mmol/L (3.5-5.1)
[2024-03-30] MEDS: FLEET ENEMA 133 ML BOTTLE RC ONE (12:43)
[2024-03-30] MEDS: BISACODYL 10 MG SUPP.RECT RC ONE (12:43)
[2024-03-30 16:00] VITALS: BP 125/68; TEMP 99; O2SAT 93
[2024-03-30 20:21] VITALS: BP 129/66; TEMP 99.1; O2SAT 93
[2024-03-30] MEDS: ACETAMINOPHEN 325 MG TABLET PO PRN (20:45)
[2024-03-31 05:40] VITALS: BP 123/61; TEMP 98.1; O2SAT 93
[2024-03-31 06:51] LABS: BASOPHILS % (AUTO) 0.4 % (0.0-2.0); EOSINOPHILS # (AUTO) 0.5 K/uL (0.0-0.7); EOSINOPHILS % (AUTO) 4.5 % (0.0-7.0); HEMATOCRIT 38.1 % (31.2-41.9); HEMOGLOBIN 12.7 g/dL (10.9-14.3); LYMPHOCYTES # (AUTO) 4.5 K/uL (0.8-4.8); LYMPHOCYTES % (AUTO) 42.5 % (20.5-51.5); MEAN CORPUSCULAR HEMOGLOBIN 27.8 uug (24.7-32.8); MEAN CORPUSCULAR HGB CONC 33 g/dL (32.3-35.6); MEAN CORPUSCULAR VOLUME 83.4 fL (75.5-95.3); MONOCYTES # (AUTO) 0.7 K/uL (0.1-1.30); MONOCYTES % (AUTO) 6.5 % (0.0-11.0); NEUTROPHILS # (AUTO) 4.9 K/uL (1.8-8.9); NEUTROPHILS % (AUTO) 46.1 % (38.5-71.5); PLATELET COUNT (AUTO) 348 K/uL (179-408); RED BLOOD CELL COUNT(AUTO) 4.57 MIL/uL (3.63-4.92); WHITE BLOOD COUNT (AUTO) 10.6 K/uL (3.8-11.8)
[2024-03-31 07:07] LABS: CALCIUM 9.3 mg/dL (8.5-10.1); CREATININE 0.6 mg/dL (0.6-1.3); MAGNESIUM 1.8 mg/dL (1.8-2.4); PHOSPHOROUS 4.6 mg/dL (2.5-4.9); POTASSIUM 4.1 mmol/L (3.5-5.1)
[2024-03-31 07:16] LABS: DIFFERENTIAL COMMENT 1
[2024-03-31 11:38] VITALS: BP 133/68; TEMP 98.9; O2SAT 94
[2024-03-31 15:59] VITALS: BP 124/60; TEMP 98.5; O2SAT 94
== END 2024-03-31 16:03 | DRG 871 ==
LOC: ER 19:35 → MEDSURG3 23:26
PROVIDERS: ADMIT Internal Medicine; ATTEND Nurse Practitioner Acute Care
DX: A41.9 Sepsis, unspecified organism (principal); G93.41 Metabolic encephalopathy; I69.351 Hemiplegia and hemiparesis following cerebral infarction affecting right dominant side; B37.49 Other urogenital candidiasis; E44.0 Moderate protein-calorie malnutrition; D68.59 Other primary thrombophilia; R65.20 Severe sepsis without septic shock; K59.00 Constipation, unspecified; M32.9 Systemic lupus erythematosus, unspecified; E66.01 Morbid (severe) obesity due to excess calories; E11.9 Type 2 diabetes mellitus without complications; E88.09 Other disorders of plasma-protein metabolism, not elsewhere classified; M79.7 Fibromyalgia; E03.9 Hypothyroidism, unspecified; G40.909 Epilepsy, unspecified, not intractable, without status epilepticus; K76.1 Chronic passive congestion of liver; I10 Essential (primary) hypertension; J45.909 Unspecified asthma, uncomplicated; Z79.02 Long term (current) use of antithrombotics/antiplatelets; Z22.322 Carrier or suspected carrier of Methicillin resistant Staphylococcus aureus; Z88.6 Allergy status to analgesic agent; Z88.8 Allergy status to other drugs, medicaments and biological substances; Z91.018 Allergy to other foods; Z68.29 Body mass index [BMI] 29.0-29.9, adult; Z79.4 Long term (current) use of insulin; Z79.899 Other long term (current) drug therapy; Z87.442 Personal history of urinary calculi; Z90.49 Acquired absence of other specified parts of digestive tract; Z95.5 Presence of coronary angioplasty implant and graft; Z87.440 Personal history of urinary (tract) infections
CPT/HCPCS: 36415; 71045; 74018; 83605; 83690; 83735; 84100; 85025; 87040; G0378; J0696; J1450; J1650; J1815; J1885; J2405; J3490; J7040